=== PATIENT | male | born 1940 | race Caucasian/White ===

== ENCOUNTER → 2021-01-03 | Outpatient (CLI) | payer MEDICARE ==
--- NOTE | 2021-01-03 17:15 | RAD ---
Chest radiograph 01/03/2021 9:22 AM INDICATION: Shortness of breath COMPARISON: 5 11/29/2014 TECHNIQUE: Frontal and lateral views of the chest are provided. FINDINGS: The cardiomediastinal silhouette is within normal limits. Aortic stent graft identified at the aortic root. There are no pleural effusions. There is no pulmonary vascular congestion. There is no pneumothorax. Mild interstitial prominence could reflect chronic interstitial edema. No significant osseous abnormality is identified. IMPRESSION: Mild interstitial prominence could reflect chronic interstitial edema. No new airspace consolidation. Electronically signed by: Sapna Medina MD (01/03/2021 5:13 PM) [id number]
== END ==
LOC: RAD 09:05
PROVIDERS: ATTEND Internal Medicine Pulmonary Disease
DX: R06.02 Shortness of breath (principal)
CPT/HCPCS: 71046

== ENCOUNTER → 2021-02-28 | Outpatient (CLI) | payer MEDICARE ==
[2021-02-28 08:28] LABS: CREATININE 1.6 mg/dL (0.7-1.3); GFR 41.6
--- NOTE | 2021-02-28 11:08 | RAD ---
PQRS Compliance Statement: One or more of the following individualized dose reduction techniques were utilized for this examinat ion: 1. Automated exposure control 2. Adjustment of the mA and/or kV according to patient size 3. Use of iterative reconstruction technique CT CHEST HIGH RESOLUTION 02/28/2021 8:49 AM Indication: Abnormal chest x-ray with shortness of air COMPARISON: None available. TECHNIQUE: Multiple axial CT images of the chest were obtained without intravenous contrast utilizing high-resolution protocol. Coronal and sagittal reformats are provided. FINDINGS: Mild reticular interstitial changes are identified throughout the lungs with lower lung zone predomin ance. There is no significant honeycombing. No groundglass changes are identified. Mild bronchial wal l thickening compatible with nonspecific bronchitis. No significant traction bronchiectasis. There is no significant air trapping. No pathologically enlarged thoracic lymph nodes. No pleural effusions, pulmonary vascular congestion or pneumothorax. Heart size within normal limits. Thoracic aorta is nor mal in course and caliber. 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 Three-vessel coronary artery vas cular calcifications are present. No pericardial effusion. Limited evaluation of the upper abdomen wi thout intravenous contrast. No suspicious abnormality is identified. Gallbladder is surgical absent. No suspicious osseous normality is identified. Advanced degenerative changes of the right glenohumera l joint are noted. 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 IMPRESSION: Mild reticular interstitial changes are identified with lower lung zone predominance. Findings do not fit a specific subtype of interstitial lung disease, however could be seen with early usual intersti tial pneumonia. No focal consolidative changes are identified. Electronically signed by: Sapna Medina MD (02/28/2021 11:06 AM) [id number]
== END ==
LOC: CT 07:55
PROVIDERS: ATTEND Internal Medicine Pulmonary Disease
DX: I25.10 Atherosclerotic heart disease of native coronary artery without angina pectoris (principal); R06.02 Shortness of breath; R93.89 Abnormal findings on diagnostic imaging of other specified body structures
CPT/HCPCS: 36415; 71250; 82565; 84520